=== PATIENT | female | born 1960 | race Asian ===

== ENCOUNTER 2024-05-19 08:27 | Emergency (ER) | payer SELFPAY ==
[2024-05-19 08:36] VITALS: BMI 34.9
[2024-05-19 09:41] LABS: BASO % 1.1 % (0-2.0); EOS % 2.4 % (0-4.5); HEMATOCRIT 42.9 % (32.4-45.2); HEMOGLOBIN 14.4 GM/dL (10.7-15.3); LYMPH % 38.5 % (8-40); MCH 29.6 pg (25.7-33.7); MCHC 33.6 g/dl (32.0-36.0); MEAN CELL VOLUME 88.2 fl (80-96); MEAN PLT VOLUME 8.5 fl (7.5-11.1); MONO % 8.9 % (3.8-10.2); NEUT % 49.1 % (42.8-82.8); PLATELET COUNT 301 10^3/uL (134-434); RBC 4.86 M/mm3 (3.60-5.2); RDW 14.3 % (11.6-15.6); WHITE BLOOD COUNT 6.2 K/mm3 (4.0-10.0)
[2024-05-19 09:48] LABS: ACTIVATED PTT 37.6 SECONDS (25.2-36.5); INR 0.94 (0.83-1.09); PROTHROMBIN TIME (PATIENT) 10.8 SEC (9.7-13.0)
[2024-05-19 09:55] LABS: CHLORIDE 109 mmol/L (98-107); SODIUM 137 mmol/L (136-145)
[2024-05-19 09:57] LABS: ALBUMIN 3.6 g/dl (3.4-5.0); BLOOD UREA NITROGEN 15.5 mg/dL (7-18); CALCIUM 9.1 mg/dL (8.5-10.1); CO2 26 mmol/L (21-32); GLUCOSE,RANDOM 101 mg/dL (74-106); MAGNESIUM 2.3 mg/dL (1.8-2.4)
[2024-05-19 09:59] LABS: CREATININE 0.7 mg/dL (0.55-1.3)
[2024-05-19 10:00] LABS: SGOT/AST 36 U/L (15-37); SGPT/ALT 25 U/L (13-61)
[2024-05-19 10:02] LABS: BILIRUBIN,TOTAL 0.4 mg/dL (0.2-1); TOT PROT 7.3 g/dl (6.4-8.2)
[2024-05-19 10:03] LABS: ALK PHOS 78 U/L (45-117); ANION GAP 2 mmol/L (4-13); POTASSIUM 6.7 mmol/L (3.5-5.1)
[2024-05-19 10:06] LABS: PH,URINE 6.5 (5.0-8.0); URINE APPEARANCE CLEAR; URINE BILIRUBIN NEGATIVE (NEGATIVE); URINE COLOR YELLOW; URINE GLUCOSE (UA) NEGATIVE (NEGATIVE); URINE KETONE NEGATIVE (NEGATIVE); URINE LEUK ESTERASE NEGATIVE (NEGATIVE); URINE NITRITE NEGATIVE (NEGATIVE); URINE PROTEIN NEGATIVE (NEGATIVE); URINE UROBILINOGEN 0.2 mg/dL (0.2-1.0)
[2024-05-19 11:40] LABS: POTASSIUM 4.2 mmol/L (3.5-5.1)
[2024-05-19 11:42] LABS: CALCIUM 9.2 mg/dL (8.5-10.1)
[2024-05-19 11:43] LABS: BLOOD UREA NITROGEN 14.1 mg/dL (7-18)
[2024-05-19 11:46] LABS: CREATININE 0.9 mg/dL (0.55-1.3)
[2024-05-19 11:50] LABS: N-TERMINAL BNP 29.1 pg/ml (5-125)
[2024-05-19 13:28] VITALS: BP 138/75; PULSE 61; RESP 20; TEMP 98.2
== END 2024-05-19 13:35 | disposition home or self-care (01) ==
LOC: JER 08:27
DX: R06.02 Shortness of breath (principal); R06.2 Wheezing; Z20.822 Contact with and (suspected) exposure to COVID-19
CPT/HCPCS: 0241U-QW; 36415; 71046-TC-FY; 80048; 80053; 81003; 83735; 83880; 84484; 85025; 85379; 85610; 85730; 87086; 93005; 93010; 93971-TC; 99285-25